=== PATIENT | male | born 2000 | race Caucasian/White ===

== ENCOUNTER 2020-06-06 11:09 | Observation (INO) ==
[2020-06-06] MEDS ORDERED: AMPICILLIN/SULBACTAM SOD 3,000 MG in 0.9 % SODIUM CHLORIDE 100 ML IV STA (11:38)
[2020-06-06] MEDS ORDERED: SODIUM CHLORIDE 0.9% 1000ML 1,000 ML IV ONE (11:38)
[2020-06-06] MEDS ORDERED: DEXAMETHASONE SOD INJ 10 MG/ML VIAL IV ONE (11:38)
--- NOTE | 2020-06-06 11:42 | Emergency Department Note ---
History of Present Illness General Chief complaint: Throat Pain Stated complaint: SWOLLEB TONSILS, BLOCKING THROAT Time Seen by Provider: 06/06/20 11:23 Source: patient Mode of arrival: ambulatory Limitations: no limitations History of Present Illness Maximum Pain Intensity: 7 This patient is a previously healthy 19-year-old male who comes in after a sore throat for 2 or 3 days. He said that his right tonsil is markedly swollen. He has had some problems with this before but no surgery. He does have a sore thr oat and he says it makes it difficult to swallow he does feel slightly short of breath at times no rash. No known exposure to coronavirus. No cough or nausea vomiting or diarrhea. No shortness of breath at rest.. No hives. Home Medications Home Medications Medication Instructions Recorded Confirmed Type No Known Home Medications 06/06/20 06/06/20 History Allergies Allergy/AdvReac Type Severity Reaction Status Date / Time peanut Allergy Anaphylaxis Verified 06/06/20 12:50 Past Med/Surg History Social History Smoking Status: Never smoker Preferred Language: Turkish Feels Safe at Home: Yes Review of Systems A total of 10 systems reviewed and were otherwise negative Physical Exam Vital Signs Vital Signs - 24 hr 06/06/20 11:16 06/06/20 12:07 06/06/20 12:09 Temperature 37.8 C H Temperature Source Oral Pulse Rate 131 H 104 H 115 H Pulse Rate from SpO2 Sensor 99 H 114 H Pulse Rhythm Regular Pulse Strength Normal Respiratory Rate 18 17 17 Respiratory Effort / Characteristics Non-Labored Spontaneous Respiratory Depth Normal Respiratory Pattern Regular Blood Pressure 101/61 120/64 Blood Pressure Mean 74 76 Blood Pressure Position Sitting Pulse Oximetry 99 98 98 Oxygen Delivery Method Room Air Room Air Room Air Sepsis Recent Fever Within 48 Hours Yes Sepsis New/Unexplained Change in Mental Status No Sepsis Action Taken by Nursing No Action Required 06/06/20 12:10 06/06/20 12:20 06/06/20 12:30 Temperature Temperature Source Pulse Rate 106 H 94 H 94 H Pulse Rate from SpO2 Sensor 107 H 95 H 95 H Pulse Rhythm Pulse Strength Respiratory Rate 23 19 22 Respiratory Effort / Characteristics Respiratory Depth Respiratory Pattern Blood Pressure 133/80 Blood Pressure Mean 84 Blood Pressure Position Pulse Oximetry 97 98 98 Oxygen Delivery Method Room Air Room Air Room Air Sepsis Recent Fever Within 48 Hours Sepsis New/Unexplained Change in Mental Status Sepsis Action Taken by Nursing 06/06/20 12:40 06/06/20 12:50 06/06/20 13:00 Temperature Temperature Source Pulse Rate 99 H 97 H 91 H Pulse Rate from SpO2 Sensor 98 H 97 H 91 H Pulse Rhythm Pulse Strength Respiratory Rate 19 18 18 Respiratory Effort / Characteristics Respiratory Depth Respiratory Pattern Blood Pressure 139/73 Blood Pressure Mean 98 Blood Pressure Position Pulse Oximetry 98 95 96 Oxygen Delivery Method Room Air Room Air Room Air Sepsis Recent Fever Within 48 Hours Sepsis New/Unexplained Change in Mental Status Sepsis Action Taken by Nursing 06/06/20 13:10 06/06/20 13:28 06/06/20 13:30 Temperature Temperature Source Pulse Rate 100 H 92 H 88 Pulse Rate from SpO2 Sensor 100 H 92 H Pulse Rhythm Pulse Strength Respiratory Rate 15 15 19 Respiratory Effort / Characteristics Respiratory Depth Respiratory Pattern Blood Pressure Blood Pressure Mean Blood Pressure Position Pulse Oximetry 96 97 Oxygen Delivery Method Room Air Room Air Room Air Sepsis Recent Fever Within 48 Hours Sepsis New/Unexplained Change in Mental Status Sepsis Action Taken by Nursing 06/06/20 13:31 06/06/20 13:40 06/06/20 13:50 Temperature Temperature Source Pulse Rate 88 97 H 92 H Pulse Rate from SpO2 Sensor 88 96 H 92 H Pulse Rhythm Pulse Strength Respiratory Rate 21 21 12 Respiratory Effort / Characteristics Respiratory Depth Respiratory Pattern Blood Pressure 115/46 L Blood Pressure Mean 81 Blood Pressure Position Pulse Oximetry 96 96 96 Oxygen Delivery Method Room Air Room Air Room Air Sepsis Recent Fever Within 48 Hours Sepsis New/Unexplained Change in Mental Status Sepsis Action Taken by Nursing 06/06/20 14:00 06/06/20 14:10 06/06/20 14:20 Temperature Temperature Source Pulse Rate 86 87 84 Pulse Rate from SpO2 Sensor 87 88 86 Pulse Rhythm Pulse Strength Respiratory Rate 20 19 19 Respiratory Effort / Characteristics Respiratory Depth Respiratory Pattern Blood Pressure 109/56 L Blood Pressure Mean 76 Blood Pressure Position Pulse Oximetry 96 95 97 Oxygen Delivery Method Room Air Room Air Room Air Sepsis Recent Fever Within 48 Hours Sepsis New/Unexplained Change in Mental Status Sepsis Action Taken by Nursing 06/06/20 14:30 06/06/20 14:31 06/06/20 14:40 Temperature Temperature Source Pulse Rate 79 84 81 Pulse Rate from SpO2 Sensor 79 85 83 Pulse Rhythm Pulse Strength Respiratory Rate 18 15 17 Respiratory Effort / Characteristics Respiratory Depth Respiratory Pattern Blood Pressure 114/55 L Blood Pressure Mean 79 Blood Pressure Position Pulse Oximetry 96 97 96 Oxygen Delivery Method Room Air Room Air Room Air Sepsis Recent Fever Within 48 Hours Sepsis New/Unexplained Change in Mental Status Sepsis Action Taken by Nursing 06/06/20 14:50 06/06/20 15:00 06/06/20 15:10 Temperature Temperature Source Pulse Rate 89 77 78 Pulse Rate from SpO2 Sensor 86 Pulse Rhythm Pulse Strength Respiratory Rate 21 16 13 Respiratory Effort / Characteristics Respiratory Depth Respiratory Pattern Blood Pressure Blood Pressure Mean Blood Pressure Position Pulse Oximetry 96 Oxygen Delivery Method Room Air Room Air Room Air Sepsis Recent Fever Within 48 Hours Sepsis New/Unexplained Change in Mental Status Sepsis Action Taken by Nursing 06/06/20 15:20 06/06/20 15:30 06/06/20 15:31 Temperature Temperature Source Pulse Rate 87 77 79 Pulse Rate from SpO2 Sensor Pulse Rhythm Pulse Strength Respiratory Rate 18 16 19 Respiratory Effort / Characteristics Respiratory Depth Respiratory Pattern Blood Pressure 115/59 L Blood Pressure Mean 82 Blood Pressure Position Pulse Oximetry Oxygen Delivery Method Room Air Room Air Room Air Sepsis Recent Fever Within 48 Hours Sepsis New/Unexplained Change in Mental Status Sepsis Action Taken by Nursing 06/06/20 15:40 06/06/20 15:50 Temperature Temperature Source Pulse Rate 82 84 Pulse Rate from SpO2 Sensor Pulse Rhythm Pulse Strength Respiratory Rate 19 14 Respiratory Effort / Characteristics Respiratory Depth Respiratory Pattern Blood Pressure Blood Pressure Mean Blood Pressure Position Pulse Oximetry Oxygen Delivery Method Room Air Room Air Sepsis Recent Fever Within 48 Hours Sepsis New/Unexplained Change in Mental Status Sepsis Action Taken by Nursing General: Well developed well nourished in no acute distress, breathing comfortably on room air. Normal speech slightly muffled HEENT: Normal cephalic atraumatic. Pupils are equal round and reactive to light. Extraocular movements are intact. Oropharynx is pink with moist mucous membranes. No swelling of the mouth lips or tongue. There is posterior oropharyngeal swelling mostly on the right tonsil with some edema in the uvula as well. The floor the mouth is soft. Neck: Supple with a midline trachea. No meningeal signs or stiffness, no JVD or bruits. No Stridor. Chest: Clear to auscultation bilaterally. No wheezes or rhonchi. No increased work of breathing. Heart: Regular rate and rhythm without murmurs or gallops. Abdomen: Soft nontender, nondistended without rebound guarding or rigidity. Extremities: No cyanosis clubbing or edema. No calf tenderness or assymetry Spine/Back. Non tender to palpation. No CVA tenderness Skin: Good turgor without rashes. Neurologic exam: Cranial nerves two through 12 are intact. Motor and sensation are intact and symmetrical throughout. Course Administered Medications Discontinued Medications Dexamethasone (Dexamethasone Sod Inj 10 Mg/Ml Vial) 10 mg IV NOW ONE Stop: 06/06/20 11:39 Last Admin: 06/06/20 12:07 Dose: 10 mg Documented by: [id number] Sodium Chloride (Nss 1000ml) 1,000 mls @ 999 mls/hr IV .Q1H1M ONE Stop: 06/06/20 12:38 Last Infusion: 06/06/20 13:10 Dose: 0 mls/hr Documented by: [id number] Admin: 06/06/20 12:07 Dose: 999 mls/hr Documented by: [id number] Ampicillin Sodium/Sulbactam Sodium 3,000 mg/ Sodium Chloride 108 mls @ 200 m ls/hr IV NOW STA; Protocol Stop: 06/06/20 12:10 Last Infusion: 06/06/20 13:10 Dose: 0 mls/hr Documented by: [id number] Admin: 06/06/20 12:07 Dose: 200 mls/hr Documented by: [id number] Ondansetron HCl (Ondansetron Inj 2 Mg/Ml 2 Ml Vial) 4 mg IV NOW STA Stop: 06/06/20 12:11 Last Admin: 06/06/20 12:12 Dose: 4 mg Documented by: [id number] Medical Decision Making Differential Diagnosis Peritonsillar abscess, pharyngitis, Covid, dehydration, epiglottitis, electrolyte or metabolic abnormality Medical Records Attestation: I reviewed the patient's medical records. Home Medications Current Medication List: was personally reviewed by me Laboratory Data Attestation: I reviewed the patient's lab results. Result diagrams: 06/06/20 12:03 06/06/20 12:03 Lab Results 06/06/20 06/06/20 06/06/20 Range/Units 12:03 12:03 12:13 WBC 13.12 H (4.8-10.8) K/uL RBC 4.78 (4.7-6.1) M/uL Hgb 13.7 L (14.0-18.0) g/dL Hct 40.8 L (42-52) % MCV 85.4 (80-100) fL MCH 28.7 (25-34) pg MCHC 33.6 (32-36) g/dL RDW Std Deviation 44.6 (36.4-46.3) fL RDW Coeff of Kaiden 14.3 (11.5-14.5) % Plt Count 244 (130-400) K/uL MPV 10.2 (7.4-10.4) fL Immature Gran % (Auto) 0.2 % Neut % (Auto) 80.0 % Lymph % (Auto) 10.4 % [place] % (Auto) 8.7 % Eos % (Auto) 0.5 % Baso % (Auto) 0.2 % Neut # (Auto) 10.50 H (1.4-6.5) K/uL Lymph # (Auto) 1.37 (1.2-3.4) K/uL [place] # (Auto) 1.14 H (0.11-0.59) K/uL Eos # (Auto) 0.06 (0-0.5) K/uL Baso # (Auto) 0.02 (0-0.2) K/uL Immature Gran # (Auto) 0.03 H (0.00-0.02) K/uL Sodium 135 L (136-145) mmol/L Potassium 4.0 (3.5-5.1) mmol/L Chloride 104 (98-107) mmol/L Carbon Dioxide 28 (21-32) mmol/L Anion Gap 3.0 (3-11) BUN 18 (7-18) mg/dl Creatinine 1.00 (0.6-1.4) mg/dl Est Cr Clr Drug Dosing 117.1 ml/min Est GFR ( Amer) 125.9 Est GFR (Non-Af Amer) 108.6 BUN/Creatinine Ratio 18.3 (10-20) Glucose 107 H (70-99) mg/dl Calcium 9.1 (8.5-10.1) mg/dl Total Bilirubin 1.3 H (0.2-1) mg/dl AST 9 L (15-37) U/L ALT 31 (12-78) U/L Alkaline Phosphatase 101 (45-117) U/L Total Protein 8.4 H (6.4-8.2) gm/dl Albumin 3.9 (3.4-5.0) gm/dl Globulin 4.5 H (2.5-4.0) gm/dl Albumin/Globulin Ratio 0.9 (0.9-2) Lipase 77 (73-393) U/L COVID-19 Eval Order Covid19 Done at [facility] COVID-19 PCR (Negative) Monoscreen (Negative) 06/06/20 06/06/20 Range/Units 12:13 12:30 WBC (4.8-10.8) K/uL RBC (4.7-6.1) M/uL Hgb (14.0-18.0) g/dL Hct (42-52) % MCV (80-100) fL MCH (25-34) pg MCHC (32-36) g/dL RDW Std Deviation (36.4-46.3) fL RDW Coeff of Kaiden (11.5-14.5) % Plt Count (130-400) K/uL MPV (7.4-10.4) fL Immature Gran % (Auto) % Neut % (Auto) % Lymph % (Auto) % [place] % (Auto) % Eos % (Auto) % Baso % (Auto) % Neut # (Auto) (1.4-6.5) K/uL Lymph # (Auto) (1.2-3.4) K/uL [place] # (Auto) (0.11-0.59) K/uL Eos # (Auto) (0-0.5) K/uL Baso # (Auto) (0-0.2) K/uL Immature Gran # (Auto) (0.00-0.02) K/uL Sodium (136-145) mmol/L Potassium (3.5-5.1) mmol/L Chloride (98-107) mmol/L Carbon Dioxide (21-32) mmol/L Anion Gap (3-11) BUN (7-18) mg/dl Creatinine (0.6-1.4) mg/dl Est Cr Clr Drug Dosing ml/min Est GFR ( Amer) Est GFR (Non-Af Amer) BUN/Creatinine Ratio (10-20) Glucose (70-99) mg/dl Calcium (8.5-10.1) mg/dl Total Bilirubin (0.2-1) mg/dl AST (15-37) U/L ALT (12-78) U/L Alkaline Phosphatase (45-117) U/L Total Protein (6.4-8.2) gm/dl Albumin (3.4-5.0) gm/dl Globulin (2.5-4.0) gm/dl Albumin/Globulin Ratio (0.9-2) Lipase (73-393) U/L COVID-19 Eval Order COVID-19 PCR NEGATIVE (Negative) Monoscreen Negative (Negative) Imaging Data Radiologist's Impression: CT SCAN OF THE NECK WITHOUT IV CONTRAST CLINICAL HISTORY: Right-sided facial swelling. COMPARISON STUDY: No priors. TECHNIQUE: Unenhanced CT scan of the soft tissues of the neck was performed from the skull base to the upper chest. Images are reviewed in the axial, sagittal, and coronal planes. IV contrast was administered for this examination. Note that the examination was performed in significantly suboptimal fashion without IV contrast. A dose lowering technique was utilized adhering to the principles of ALARA. CT DOSE: 427.73 mGycm FINDINGS: Pharynx: The right palatine tonsil is markedly enlarged and heterogeneous with phlegmonous change. Question a 1.4 cm peritonsillar abscess on image #73. This is not well evaluated without IV contrast. This minimally narrows the oropharyngeal airway. There is infiltration of the right parapharyngeal fat. There is no evidence of mass lesion on this unenhanced examination. The vocal cords are symmetric. The left-sided parapharyngeal fat is well maintained. The prevertebral/retropharyngeal soft tissues are within normal limits. The epiglottis is normal. Lymphadenopathy: The cutaneous marker in the right neck overlies enlarged right cervical lymph node. This is best seen on image #103 measures 3.0 x 1.6 cm. Thyroid: Normal in size and attenuation. Salivary glands: The parotid and submandibular glands are within normal limits. Brain parenchyma: The visualized brain parenchyma at the skull base is normal in appearance. Skeletal structures: Imaged portions of the calvarium at the skull base are within normal limits. The cervical spine appears intact. No lytic or blastic lesion is seen. Sinuses and mastoids: There is trace mucosal thickening in the left maxillary antrum. A 2.5 cm retention cyst is noted in the right maxillary antrum. The mastoid air cells are well pneumatized. Lung apices: Visualized apical lung parenchyma is clear. IMPRESSION: 1. Significantly suboptimal examination without IV contrast. 2. There is significant enlargement and inflammatory change seen involving the right-sided tonsils. The appearance is typical for pharyngitis/tonsillitis and clinical correlation will required. 3. There is causes mild narrowing of the adjacent oropharyngeal airway. 4. There is phlegmonous change involving the right tonsils with a suspected 1.5 cm peritonsillar abscess. This is not well assessed without IV contrast. 5. The cutaneous marker at the site of interest overlies an enlarged cervical lymph node. This is likely on a reactive basis. MDM Narrative This patient comes in as described above he said a sore throat for couple days with a swollen tonsil is getting worse. He appears in no distress although does have some slightly muffled voice. His O2 sat is 99% he is not drooling. He does have a large tonsil on the right with swelling of the uvula associated with it. Besides this the oropharynx is open on the left. Floor the mouth is soft. IV access was established and he was hydrated with IV normal saline. Is given Decadron 10 mg IV as well as Unasyn 3 g IV for antibiotic coverage. White count is mildly elevated, Monospot is negative. There is no significant electrolyte or metabolic abnormalities. CAT scan does show pharyngitis on the right with a likely 1.5 cm abscess. I discussed the case with Dr. Redmond who is on-call for ENT. She feels that the patient can be managed initially with IV antibiotics and IV Decadron every 6 hours 10 mg. If the patient is not getting better in 24 hours she will see him for likely drainage. I discussed this with the patient his mother who is at the bedside and they are happy with this plan the. His Covid test was negative. The patient will be admitted for observation of swelling and infection and peritonsillar abscess Impression & Plan Peritonsillar abscess, Acute sore throat, Lab test negative for COVID-19 virus, Acute dehydration Discharge Plan Visit Data Chief Complaint: Throat Pain Stated Complaint: SWOLLEB TONSILS, BLOCKING THROAT ED Provider: Kee Amaro Discharge Problem: Peritonsillar abscess, Acute sore throat, Lab test negative for COVID-19 virus, Acute dehydration Forms Stand Alone Forms: My [facility] [employer] Prescriptions Prescriptions: No Action No Known Home Medications RF: 0
[2020-06-06] MEDS ORDERED: ONDANSETRON INJ 2 MG/ML 2 ML VIAL IV STA (12:10)
[2020-06-06 12:12] LABS: Basophils # (auto) 0.02 K/uL (0-0.2); Basophils % (auto) 0.2 %; Eosinophils # (auto) 0.06 K/uL (0-0.5); Eosinophils % (auto) 0.5 %; Hematocrit (blood only) 40.8 % (42-52); Hemoglobin 13.7 g/dL (14.0-18.0); Immature Granulocytes # (auto) 0.03 K/uL (0.00-0.02); Immature Granulocytes % (auto) 0.2 %; Lymphocytes # (auto) 1.37 K/uL (1.2-3.4); Lymphocytes % (auto) 10.4 %; Mean Corpuscular Hemoglobin 28.7 pg (25-34); Mean Corpuscular Hgb Conc 33.6 g/dL (32-36); Mean Corpuscular Volume 85.4 fL (80-100); Mean Platelet Volume 10.2 fL (7.4-10.4); Monocytes # (auto) 1.14 K/uL (0.11-0.59); Monocytes % (auto) 8.7 %; Platelet Count 244 K/uL (130-400); RDW Coefficient of Variation 14.3 % (11.5-14.5); RDW Standard Deviation 44.6 fL (36.4-46.3); Red Blood Count 4.78 M/uL (4.7-6.1); White Blood Count 13.12 K/uL (4.8-10.8)
[2020-06-06 12:34] LABS: Albumin Level 3.9 gm/dl (3.4-5.0); BUN Creatinine Ratio 18.3 (10-20); Calcium 9.1 mg/dl (8.5-10.1); Creatinine Clr Calc Pharmacy 117.1 ml/min; Est GFR (African American) 125.9; Est GFR (Non-African American) 108.6
[2020-06-06 12:37] LABS: Albumin Globulin Ratio 0.9 (0.9-2); Bilirubin,Total 1.3 mg/dl (0.2-1); Globulin 4.5 gm/dl (2.5-4.0); Total Protein 8.4 gm/dl (6.4-8.2)
--- NOTE | 2020-06-06 13:36 | CT Scan Report ---
CT SCAN OF THE NECK WITHOUT IV CONTRAST CLINICAL HISTORY: Right-sided facial swelling. COMPARISON STUDY: No priors. TECHNIQUE: Unenhanced CT scan of the soft tissues of the neck was performed from the skull base to th e upper chest. Images are reviewed in the axial, sagittal, and coronal planes. IV contrast was admin istered for this examination. Note that the examination was performed in significantly suboptimal fas hion without IV contrast. A dose lowering technique was utilized adhering to the principles of ALARA . CT DOSE: 427.73 mGycm FINDINGS: Pharynx: The right palatine tonsil is markedly enlarged and heterogeneous with phlegmonous change. Qu estion a 1.4 cm peritonsillar abscess on image #73. This is not well evaluated without IV contrast. T his minimally narrows the oropharyngeal airway. There is infiltration of the right parapharyngeal fat . There is no evidence of mass lesion on this unenhanced examination. The vocal cords are symmetric. The left-sided parapharyngeal fat is well maintained. The prevertebral/retropharyngeal soft tissues a re within normal limits. The epiglottis is normal. Lymphadenopathy: The cutaneous marker in the right neck overlies enlarged right cervical lymph node. This is best seen on image #103 measures 3.0 x 1.6 cm. Thyroid: Normal in size and attenuation. Salivary glands: The parotid and submandibular glands are within normal limits. Brain parenchyma: The visualized brain parenchyma at the skull base is normal in appearance. Skeletal structures: Imaged portions of the calvarium at the skull base are within normal limits. The cervical spine appears intact. No lytic or blastic lesion is seen. Sinuses and mastoids: There is trace mucosal thickening in the left maxillary antrum. A 2.5 cm retent ion cyst is noted in the right maxillary antrum. The mastoid air cells are well pneumatized. Lung apices: Visualized apical lung parenchyma is clear. IMPRESSION: 1. Significantly suboptimal examination without IV contrast. 2. There is significant enlargement and inflammatory change seen involving the right-sided tonsils. T he appearance is typical for pharyngitis/tonsillitis and clinical correlation will required. 3. There is causes mild narrowing of the adjacent oropharyngeal airway. 4. There is phlegmonous change involving the right tonsils with a suspected 1.5 cm peritonsillar absc ess. This is not well assessed without IV contrast. 5. The cutaneous marker at the site of interest overlies an enlarged cervical lymph node. This is lik arianna on a reactive basis. ACT 112: Negative or not required by law. Electronically signed by: Alden Musa M.D. 06/06/2020 1:34 PM
--- NOTE | 2020-06-06 15:53 | History & Physical Report ---
Date of Service June 06, 2020 Assessment & Plan (1) Peritonsillar abscess: Patient has a peritonsillar abscess measuring 1.[address] imaging of his neck. Ear nose and throat feels we should try conservative medical management rather than surgical management at this point time. He is given Unasyn and dexamethasone these will be continued. His Monospot was negative. At this point time he is not drooling and he is able to protect his airway breathing without stridor. Dr. Redmond is urban design consultant. Patient be provided Magic swizzle and soft foods History of Present Illness Primary Care Provider: [facility] 19-year-old male who comes in after a sore throat for 2 or 3 days. He said that his right tonsil is markedly swollen. He has had some problems with this before but no surgery. He does have a sore throat and he says it makes it difficult to swallow he does feel slightly short of breath at times no rash. No known exposure to coronavirus. No cough or nausea vomiting or diarrhea. No shortness of breath at rest.. No hives. Reportedly the emergency room doctor spoke to on-call ear nose and throat who recommended dexamethasone and antibiotics despite the appearance of the abscess on CT scan with reassessment. I believe is Dr. Barrientos Allergies Allergy/AdvReac Type Severity Reaction Status Date / Time peanut Allergy Anaphylaxis Verified 06/06/20 12:50 Home Medications Home Medications Medication Instructions Recorded Confirmed Type No Known Home Medications 06/06/20 06/06/20 History Past Med/Surg History Social History Smoking Status: Never smoker Preferred Language: Moroccan Feels Safe at Home: Yes Review of Systems Review of Systems: Mild distress and fatigue no headache, blurry or double vision Some change of his speech definitely painful swallowing patient is not drooling no chest pain, pressure or palpitations no shortness of breath, cough or wheezes no abdominal pain, nausea or vomiting, diarrhea or constipation no dysuria, hematuria or frequency no focal joint pain or swelling no back pain, CVA tenderness or radicular pain no bruising, bleeding or rashes no focal signs of weakness or numbness or altered sensation no complaints of anxiety or depression. Physical Exam Physical Exam: The patient appeared well nourished and normally developed. Vital signs as documented. Head exam is normocephalic atraumatic no scleral icterus Neck is without JVD, thyromegaly, or carotid bruits. There is some tenderness and swelling to the right neck. Oropharynx shows very enlarged tonsil that is extending to and just past midline on the right with erythema General erythematous posterior pharynx Lungs are clear to auscultation, no focal loss of breath sounds no stridor was heard Cardiac exam, Rhythm is regular.. No murmurs, rubs or gallops. Abdominal exam reveals normal bowel sounds, soft non tender, no masses Extremities are nonedematous and both pedal pulses are present Neurologic exam is alert and oriented, no focal loss of strength or sensation Skin is without bruises or rashes Psychologically is without concerns for anxiety or depression. Results & Data Results & Data ([facility]) Vital Signs (Past 12 Hours) Vital Signs Temp Pulse Resp BP Pulse Ox 06/06/20 14:00 86 20 109/56 L 96 06/06/20 13:50 92 H 12 96 06/06/20 13:40 97 H 21 96 06/06/20 13:31 88 21 115/46 L 96 06/06/20 13:30 88 19 06/06/20 13:28 92 H 15 97 06/06/20 13:10 100 H 15 96 06/06/20 13:00 91 H 18 139/73 96 06/06/20 12:50 97 H 18 95 06/06/20 12:40 99 H 19 98 06/06/20 12:30 94 H 22 133/80 98 06/06/20 12:20 94 H 19 98 06/06/20 12:10 106 H 23 97 06/06/20 12:09 115 H 17 98 06/06/20 12:07 104 H 17 120/64 98 06/06/20 11:16 100.0 F H 131 H 18 101/[address] scan of the neck 06/06/2020 IMPRESSION: 1. Significantly suboptimal examination without IV contrast. 2. There is significant enlargement and inflammatory change seen involving the right-sided tonsils. The appearance is typical for pharyngitis/tonsillitis and clinical correlation will required. 3. There is causes mild narrowing of the adjacent oropharyngeal airway. 4. There is phlegmonous change involving the right tonsils with a suspected 1.5 cm peritonsillar abscess. This is not well assessed without IV contrast. 5. The cutaneous marker at the site of interest overlies an enlarged cervical lymph node. This is likely on a reactive basis. Code Status & VTE Plan VTE Prophylaxis Plan VTE Prophylaxis will be ordered: Yes PG Care Time/CCT Total # of Minutes Spent Total Time Spent with Patient: Total time spent is greater than 50% in coordination of care (as documented) at patient's floor/unit and/or counseling patient: Coding Level of Care Code 61767 Initial Inpt Care Lvl 2 Diagnoses Peritonsillar abscess J36
[2020-06-06] MEDS ORDERED: ACETAMINOPHEN 500 MG TAB PO PRN (17:21)
[2020-06-06] MEDS ORDERED: ONDANSETRON INJ 2 MG/ML 2 ML VIAL IV PRN (17:21)
[2020-06-06] MEDS: AMPICILLIN/SULBACTAM SOD 3,000 MG in 0.9 % SODIUM CHLORIDE 100 ML IV SCH ×2 (18:55→23:26)
[2020-06-06] MEDS: DEXAMETHASONE SOD PHOSPHATE 4 MG in SYRINGE 0 ML IV SCH (20:44)
[2020-06-06] MEDS ORDERED: DEXAMETHASONE SOD INJ 10 MG/ML VIAL IV SCH (21:00)
[2020-06-07] MEDS: AMPICILLIN/SULBACTAM SOD 3,000 MG in 0.9 % SODIUM CHLORIDE 100 ML IV SCH ×3 (05:50→15:27)
[2020-06-07] MEDS: DEXAMETHASONE SOD PHOSPHATE 4 MG in SYRINGE 0 ML IV SCH ×2 (08:12→13:31)
[2020-06-07 09:27] LABS: Hematocrit (blood only) 40.1 % (42-52); Hemoglobin 13.2 g/dL (14.0-18.0); Mean Corpuscular Hemoglobin 28.3 pg (25-34); Mean Corpuscular Hgb Conc 32.9 g/dL (32-36); Mean Corpuscular Volume 86.1 fL (80-100); Mean Platelet Volume 10.6 fL (7.4-10.4); Platelet Count 285 K/uL (130-400); RDW Coefficient of Variation 14.5 % (11.5-14.5); RDW Standard Deviation 45.7 fL (36.4-46.3); Red Blood Count 4.66 M/uL (4.7-6.1); White Blood Count 15.33 K/uL (4.8-10.8)
[2020-06-07 09:56] LABS: BUN Creatinine Ratio 18.8 (10-20); Blood Urea Nitrogen 14 mg/dl (7-18); Calcium 9.8 mg/dl (8.5-10.1); Carbon Dioxide 27 mmol/L (21-32); Chloride 105 mmol/L (98-107); Creatinine Clr Calc Pharmacy 151.5 ml/min; Est GFR (African American) > 150.0; Est GFR (Non-African American) 130.6; Glucose 124 mg/dl (70-99); Potassium 4.3 mmol/L (3.5-5.1); Sodium 136 mmol/L (136-145)
--- NOTE | 2020-06-07 14:51 | ENT Consultation ---
Date of Consultation June 07, 2020 Assessment & Plan (1) Peritonsillar abscess: Drained with immediate improvement in PE. Can go home after 6pm dose of Abx. Should be discharged on 2 weeks of abx and medrol dose pack. Would recommend tonsillectomy, should wait 4 weeks after completing abx. Can do at home if it is easier so he can be at his parents. Present on Admission?: Yes (2) Lab test negative for COVID-19 virus: History of Present Illness Reason for Consultation: right [employer] Attending Physician: Dayne Daniels MD History of Present Illness 3 day history of right sided throat pain and swelling, hx of previous [employer] in April treated medically Allergies Allergy/AdvReac Type Severity Reaction Status Date / Time peanut Allergy Anaphylaxis Verified 06/06/20 12:50 Home Medications Home Medications Medication Instructions Recorded Confirmed Type No Known Home Medications 06/06/20 06/06/20 History amoxicillin-pot clavulanate 1 tab PO BID #28 tab 06/07/20 Rx [Augmentin] methylprednisolone [Medrol (Thanh)] See Rx Instructions .ROUTE 06/07/20 Rx .COMPLEX #21 ea Patient History Social History Smoking Status: Never smoker Hx Alcohol Use: Yes Alcohol type: beer, wine and hard liquor Hx Substance Use: No Preferred Language: Qatari Communication Ability: Effective Arranging Funeral Director Required: No Beliefs That Will Affect Care: None Current Living Situation: Other Other Information That Helps Us Care for You: No Feels Safe at Home: Yes Safety Concerns: Feels Safe At This Time Assistive Devices: None Review of Systems Review of Systems: All systems reviewed & are unremarkable except as noted in HPI & below Physical Exam Physical Exam: General: AAOx3 Oral exam: right sided [employer] Procedure: Patient identified by name and clinic number. Area anesthesized with hurricane spray followed by injection with 1% lidocaine with 1:100,000 of epinephrine. 18 gauge needle was then used to aspirate 4cc of purulence. Patient tolerated the procedure without issue. Results & Data ([facility]) Vital Signs (Past 12 Hours) Vital Signs Temp Pulse Resp BP Pulse Ox 06/07/20 07:26 36.9 C 78 16 111/67 99
--- NOTE | 2020-06-07 16:25 | Discharge Summary ---
Date of Service June 07, 2020 Admission HPI Per Admitting Provider 19-year-old male who comes in after a sore throat for 2 or 3 days. He said that his right tonsil is markedly swollen. He has had some problems with this before but no surgery. He does have a sore throat and he says it makes it difficult to swallow he does feel slightly short of breath at times no rash. No known exposure to coronavirus. No cough or nausea vomiting or diarrhea. No shortness of breath at rest.. No hives. Reportedly the emergency room doctor spoke to on-call ear nose and throat who recommended dexamethasone and antibiotics despite the appearance of the abscess on CT scan with reassessment. I believe is Dr. Barrientos Principal Diagnosis Peritonsillar abscess Discharge Exam Constitutional WD/WN, vitals as above Eyes EOM intact bilaterally; no conjunctival abnormality ENMT external ear and nose normal, oropharynx normal Mouth / Teeth: 1. Swelling Neck trachea midline, no thyromegaly normal visual inspection Respiratory normal respiratory effort, lungs clear to auscultation no respiratory distress Cardiovascular RRR, no murmur, no edema Gastrointestinal (Abdomen) Inspection/Auscultation: abdomen normal to inspection; abdomen not distended Musculoskeletal no cyanosis or clubbing, extremities motor strength 5/5 Skin no rashes, warm and dry Neurologic moves all extremities and awake Psychiatric Orientation: alert, oriented to person and cooperative Discharge Data Allergies Allergy/AdvReac Type Severity Reaction Status Date / Time peanut Allergy Anaphylaxis Verified 06/06/20 12:50 Consultations 06/06/20 13:58 ED Decision to Admit Stat 06/07/20 11:52 Consult Otolaryngology (Head and Neck) Routine Ordered Studies 06/06/20 11:35 CT soft tissue neck wo con Stat Hospital Course (1) Peritonsillar abscess: Patient has a peritonsillar abscess measuring 1.[address] imaging of his neck. Ear nose and throat feels we should try conservative medical management rather than surgical management at this point time. He is given Unasyn and dexamethasone these will be continued. His Monospot was negative. At this point time he is not drooling and he is able to protect his airway breathing without stridor. - Seen by Dr. Domínguez with small drainage on 06/07. - Discharged on Augmentin x 14 days and Medrol Dosepak. He was on clindamycin in April, so switched abx. Will follow up with Dr. Domínguez in clinic to consider tonsillectomy. Total Time Total Time Spent Total Time Spent (In Minutes): 35 Discharge Plan Discharge Items Patient Disposition: Home - Self-Care Reason For Visit: PERITONSILAR ABSCESS Discharge Diagnosis: Peritonsillar abscess Activity: Resume your previous activity Non-emergency contact: Primary Care Provider and Surgeon Call non-emergency contact if: your symptoms worsen and your temperature is above 101 Follow-up/Referrals: [facility] [Primary Care Provider] - Myriam Domínguez MD [Surgeon] - (Please see her in the clinic in about 2 weeks (at the end of your antibiotic course).) Diet: Regular Diet Texture: Easy to Chew Addtl Attending Provider Instructions: You were admitted to the hospital for a peritonsillar abscess. Please take your Augmentin x 2 weeks. You can take the steroid pack as prescribed by the package. Please see Dr. Domínguez in 2 weeks (around the time you finish your antibiotic) to check on how you're doing. You will need to discuss possible tonsil surgery given this is the second infection in a short duration. Pending Studies at Discharge: No Stand-Alone Forms: [employer], Smoking Cessation Medications and DC Order Prescriptions: New amoxicillin-pot clavulanate [Augmentin] 875-125 mg tablet 1 tab PO BID Qty: 28 RF: 0 methylprednisolone [Medrol (Thanh)] 4 mg tablets,dose pack See Rx Instructions .ROUTE .COMPLEX Qty: 21 RF: 0 No Action No Known Home Medications RF: 0 Discharge Orders: Discharge Order (Routine); Ordered 06/07/20 Ordered By: Dayne Daniels Admission Data Admit Date/Time: 06/06/20 15:45 Attending Provider: Dayen Daniels Admit Provider: Ziggy Moeller Primary Care Provider: [facility] Other Providers: Dayne Daniels ; Myriam Domínguez Coding Level of Care Code D/C Day Management >30 mins Diagnoses Peritonsillar abscess J36
== END 2020-06-07 17:33 | disposition home or self-care (01) ==
LOC: ED 11:09 → INTOOBSV 15:45 → SUATTDRO 15:45 → 3N 15:45